=== PATIENT | female | born 1950 | race Caucasian/White ===

== ENCOUNTER 2019-03-06 23:04 | Emergency (ER) | payer SELFPAY ==
[~2019-03-06] VITALS: Ht 165.1 cm; Wt 95.3 kg
[2019-03-06] MEDS ORDERED: ONDANSETRON PF 4 MG/2 ML VIAL. IV ONE (23:45)
[2019-03-06] MEDS ORDERED: IV NORMAL SALINE 1,000ML 1,000 ML IV ONE (23:45)
--- NOTE | 2019-03-07 | EKG ---
[address] [address] Test Date: 2019-03-06 Test Time: 23:47:47 Pat Name: LINDESY HELMS Department: Room: Gender: F Behavioral Analyst: : 1950 Requested By: DAVION ANN Order Number: [id number] Reading MD: Measurements Intervals [place] Rate: 82 P: 39 ND: 188 QRS: 29 QRSD: 86 T: 31 QT: 400 QTc: 471 Interpretive Statements SINUS RHYTHM QRS(T) CONTOUR ABNORMALITY CONSISTENT WITH ANTEROSEPTAL INFARCT AGE UNDETERMINED ABNORMAL ECG RI6.01 No previous ECG available for comparison
--- NOTE | 2019-03-07 00:01 | RAD ---
CT HEAD WO CONTRAST History: Nausea, headache Comparison: None. Technique: Noncontrast CT imaging was performed of the head. Exposure: One or more of the following individualized dose reduction techniques were utilized for this examination: 1. Automated exposure control 2. Adjustment of the mA and/or kV according to patient size 3. Use of iterative reconstruction technique. Findings: No acute extra-axial or parenchymal hemorrhage is identified. There is no significant intra-axial mass effect, midline shift, or extra-axial fluid collection. The lee-white differentiation of the major vascular territories is preserved. Ventricular size is proportionate to the sulcal spaces, within normal limits. There is mild supratentorial involutional change greater of the frontal lobes. The mastoid air cells and the visualized paranasal sinuses are aerated. No acute calvarial abnormality is identified. Impression: 1. No acute intracranial abnormality is identified. 2. There is mild supratentorial involutional change greater of the frontal lobes. Electronically signed by: Migel Lopes MD (03/06/2019 11:58 PM) [facility]
[2019-03-07 00:12] LABS: BASO % 0 % (0-3); EOS # 0.2 x10^3/uL (0.0-0.7); EOS % 1 % (0-3); HEMATOCRIT 36.5 % (36.0-47.0); HEMOGLOBIN 11.8 g/dL (12.0-15.5); LYMPH # 2.6 x10^3/uL (1.0-4.8); LYMPH % 14 % (24-48); MEAN CORPUSCULAR HEMOGLOBIN 27 pg (25-35); MEAN CORPUSCULAR HGB CONC 32 g/dL (31-37); MEAN CORPUSCULAR VOLUME 84 fL (79-100); MONO # 1.1 x10^3/uL (0.0-1.1); MONO % 6 % (0-9); NEUT # 14.2 x10^3uL (1.8-7.7); NEUT % 78 % (31-73); PLATELET COUNT 249 x10^3/uL (140-400); RED BLOOD COUNT 4.37 x10^6/uL (3.50-5.40); RED CELL DISTRIBUTION WIDTH 12.7 % (11.5-14.5); WHITE BLOOD COUNT 18.2 x10^3/uL (4.0-11.0)
[2019-03-07 00:21] LABS: ALBUMIN 3.6 g/dL (3.4-5.0); ALBUMIN/GLOBULIN RATIO 0.9 (1.0-1.7); CALCIUM 9.5 mg/dL (8.5-10.1); CREATININE 1.7 mg/dL (0.6-1.0); GFR 29.7; TOTAL BILIRUBIN 0.8 mg/dL (0.2-1.0); TOTAL PROTEIN 7.4 g/dL (6.4-8.2)
[2019-03-07 00:32] LABS: % BANDS 9 % (0-9); % LYMPHS 15 % (24-48); % MONOS 3 % (0-10); % SEGS 73 % (35-66); PLT ESTIMATE ADEQUATE (ADEQUATE)
[2019-03-07 01:16] LABS: BILIRUBIN,URINE NEG (NEG); CLARITY,URINE CLEAR; COLOR,URINE YELLOW; GLUCOSE,URINE NEG (NEG); NITRITE,URINE NEG (NEG); UROBILINOGEN,URINE 0.2 mg/dL (0.2 mg/dL)
[2019-03-07 01:17] LABS: BACTERIA,URINE FEW /HPF (0-FEW); RBC,URINE 0 /HPF (0-2); SQUAMOUS EPITHELIAL CELL,UR FEW /LPF
[2019-03-07 01:30] VITALS: BP 113/56
[2019-03-07] MEDS ORDERED: ONDANSETRON PF 4 MG/2 ML VIAL. IV ONE (01:30)
[2019-03-07] MEDS ORDERED: CEPH500T PO (01:33)
[2019-03-07] MEDS ORDERED: ONDA4TAB12 PO (01:33)
[2019-03-07] MEDS ORDERED: cefTRIAXone SODIUM 1 GM VIAL ONE (01:36)
[2019-03-07] MEDS ORDERED: IV NORMAL SALINE 50ML 50 ML ONE (01:37)
[2019-03-07] MEDS ORDERED: ONDANSETRON 4MG ODT 4TABLET STARTPACK. PO ONE ×2 (01:58→02:00)
--- NOTE | 2019-03-07 05:50 | PHYS DOC ---
Past History Past Medical History: Diabetes, Hypertension, Other Past Surgical History: Appendectomy, Hysterectomy, Other Alcohol Use: None Drug Use: None Adult General Chief Complaint Chief Complaint: NAUSEA/VOMITING/DIARRHEA HPI HPI Patient is a 69-year-old female who is presenting to the emergency room with chief complaint of body aches neck pain nausea and frequent vomiting. She had a headache earlier in the day but that has gone away. No abdominal pain no chest pain in addition patient did have 3 vaccinations yesterday pneumonia shingles and flu. Patient was vomiting all day could not keep anything down so decided to call the emergency medical services for evaluation. EKG was done in the emergency room which showed a normal sinus rhythm with no obvious acute ischemic changes no STEMI Review of Systems Review of Systems Constitutional: Eyes: Denies change in visual acuity, redness, or eye pain [] Respiratory: Denies cough or shortness of breath [] Cardiovascular: No additional information not addressed in HPI [] Neurologic: Deniesfocal weakness or sensory changes [] Endocrine: Denies polyuria or polydipsia [] All other systems were reviewed and found to be within normal limits, except as documented in this note. Current Medications Current Medications Current Medications Medications (Trade) Dose Ordered Sig/Rolando Start Time Stop Time Status Last Admin Dose Admin Ceftriaxone Sodium 1 gm/ Sodium Chloride 50 ml @ 100 mls/hr 1X ONCE 03/07/19 01:45 03/07/19 02:06 DC 03/07/19 01:39 100 MLS/HR Ceftriaxone Sodium (Rocephin) 1 gm STK-MED ONCE 03/07/19 01:36 03/07/19 01:36 DC Fentanyl Citrate (Fentanyl 2ml Vial) 50 mcg 1X ONCE 03/06/19 23:45 03/06/19 23:46 DC 03/06/19 23:42 50 MCG Ondansetron HCl (Starter Pack - Zofran Odt) 1 startpack 1X ONCE 03/07/19 02:00 03/07/19 02:05 DC 03/07/19 02:02 1 STARTPACK Ondansetron HCl (Zofran) 4 mg 1X ONCE 03/07/19 01:30 03/07/19 01:31 DC 03/07/19 01:24 4 MG Sodium Chloride 50 ml @ As Directed STK-MED ONCE 03/07/19 01:37 03/07/19 01:37 DC Allergies Allergies Allergies Coded Allergies Type Severity Reaction Last Updated Verified No Known Drug Allergies 03/06/19 No Physical Exam Physical Exam Constitutional: Well developed, well nourished, no acute distress, non-toxic appearance. [] HENT: Normocephalic, atraumatic, bilateral external ears normal, oropharynx moist, no oral exudates, nose normal. [] Eyes: PERRLA, EOMI, conjunctiva normal, no discharge. [] Neck: Normal range of motion, there is some paraspinous mostly on the right tenderness, supple patient is able to touch chin to chest without significant limitation, no stridor. [] Cardiovascular:Heart rate regular rhythm, no murmur [] Lungs & Thorax: Bilateral breath sounds clear to auscultation [] Abdomen: Bowel sounds normal, soft, no tenderness, no masses, no pulsatile masses. [] Skin: erythema left bicep Back: No tenderness, no CVA tenderness. [] Extremities: No tenderness, no cyanosis, no clubbing, ROM intact, no edema. [] Neurologic: Alert and oriented X 3, normal motor function, normal sensory function, no focal deficits noted. [] Psychologic: Affect normal, judgement normal, mood normal. [] Current Patient Data Vital Signs Vital Signs Date Time Temp Pulse Resp B/P (MAP) Pulse Ox O2 Delivery O2 Flow Rate FiO2 03/07/19 01:30 80 18 113/56 (75) 95 Room Air 03/06/19 23:04 98.6 * None Temperature (Fahrenheit): * 98.6 degrees F (97.6-99.5) Patient Temperature * 98.6 degrees F (97.5-99.5) Temperature Source * Oral Blood Pressure Location * Right Arm Blood Pressure Source * Automatic Cuff Pulse Rate * 80 beats per minute (60-90) Pulse Assessment Method * Monitor Respiratory Rate * 18 breaths per minute (12-24) Oxygen Delivery Method * Room Air Bedside Pulse Oximetry * 96 % Treatment Prior to Arrival * No Complaint of Pain * No LOC * Alert Coma Scale Eye Opening * 4-Spontaneous Coma Scale Motor * 6-Obeys Commands Coma Scale Verbal * 5-Oriented [place] Coma Scale Total * 15 points (-15) Dialysis * No Lab Results Laboratory Tests Test 03/06/19 23:40 8/30/19 00:50 White Blood Count 18.2 x10^3/uL (4.0-11.0) H Red Blood Count 4.37 x10^6/uL (3.50-5.40) Hemoglobin 11.8 g/dL (12.0-15.5) L Hematocrit 36.5 % (36.0-47.0) Mean Corpuscular Volume 84 fL (79-100) Mean Corpuscular Hemoglobin 27 pg (25-35) Mean Corpuscular Hemoglobin Concent 32 g/dL (31-37) Red Cell Distribution Width 12.7 % (11.5-14.5) Platelet Count 249 x10^3/uL (140-400) Neutrophils (%) (Auto) 78 % (31-73) H Lymphocytes (%) (Auto) 14 % (24-48) L Monocytes (%) (Auto) 6 % (0-9) Eosinophils (%) (Auto) 1 % (0-3) Basophils (%) (Auto) 0 % (0-3) Neutrophils # (Auto) 14.2 x10^3uL (1.8-7.7) H Lymphocytes # (Auto) 2.6 x10^3/uL (1.0-4.8) Monocytes # (Auto) 1.1 x10^3/uL (0.0-1.1) Eosinophils # (Auto) 0.2 x10^3/uL (0.0-0.7) Basophils # (Auto) 0.0 x10^3/uL (0.0-0.2) Segmented Neutrophils % 73 % (35-66) H Band Neutrophils % 9 % (0-9) Lymphocytes % 15 % (24-48) L Monocytes % 3 % (0-10) Platelet Estimate Adequate (ADEQUATE) Sodium Level 139 mmol/L (136-145) Potassium Level 4.0 mmol/L (3.5-5.1) Chloride Level 102 mmol/L (98-107) Carbon Dioxide Level 25 mmol/L (21-32) Anion Gap 12 (6-14) Blood Urea Nitrogen 19 mg/dL (7-20) Creatinine 1.7 mg/dL (0.6-1.0) H Estimated GFR (Cockcroft-Gault) 29.7 BUN/Creatinine Ratio 11 (6-20) Glucose Level 205 mg/dL (70-99) H Calcium Level 9.5 mg/dL (8.5-10.1) Total Bilirubin 0.8 mg/dL (0.2-1.0) Aspartate Amino Transferase (AST) 13 U/L (15-37) L Alanine Aminotransferase (ALT) 13 U/L (14-59) L Alkaline Phosphatase 114 U/L (46-116) Troponin I Quantitative < 0.017 ng/mL (0-0.055) Total Protein 7.4 g/dL (6.4-8.2) Albumin 3.6 g/dL (3.4-5.0) Albumin/Globulin Ratio 0.9 (1.0-1.7) L Lipase 150 U/L (73-393) Urine Collection Type Unknown Urine Color Yellow Urine Clarity Clear Urine pH 5.5 Urine Specific [place] 1.010 Urine Protein Neg (NEG-TRACE) Urine Glucose (UA) Neg mg/dL (NEG) Urine Ketones (Stick) Neg mg/dL (NEG) Urine Blood Trace (NEG) Urine Nitrite Neg (NEG) Urine Bilirubin Neg (NEG) Urine Urobilinogen Dipstick 0.2 mg/dL (0.2 mg/dL) Urine Leukocyte Esterase Trace (NEG) Urine RBC 0 /HPF (0-2) Urine WBC 5-10 /HPF (0-4) Urine Squamous Epithelial Cells Few /LPF Urine Bacteria Few /HPF (0-FEW) EKG EKG [] Radiology/Procedures Radiology/Procedures [] Impressions: Head CT negative acute Course & Med Decision Making Course & Med Decision Making Pertinent Labs and Imaging studies reviewed. (See chart for details) []History of diabetes hypertension presenting with nausea vomiting generalized malaise and some neck pain after recent triple vaccine yesterday. Overall think the spectrum of symptoms is most consistent with a symptomatic reaction to the vaccinations. There is also a localized skin reaction noted as well. In the emergency room I did note the leukocytosis this could be from the significant vomiting that she was experiencing. Her abdomen is completely no ntender, lungs clear no cough or sob. Noted the urinalysis gave some ceftriaxone as well as a prescription for Keflex. This would also help if there is the beginnings of a cellulitis on the left upper extremity. Patient was neurologically intact neck she felt much much better in the emergency room after Zofran and IV fluids. Her neck remained supple she remained alert afebrile with normal blood pressure and overall clinically appeared stable. At this point, did give her return precautions we talked about the leukocytosis specifically and the need to come back should she spike a fever or have any other focal new infectious symptoms. Dragon Disclaimer Dragon Disclaimer This electronic medical record was generated, in whole or in part, using a voice recognition dictation system. Departure Departure: Impression: Primary Impression: Vomiting Disposition: HOME, SELF-CARE Condition: STABLE Patient Instructions: Pneumococcal Vaccine, Polyvalent suspension for injection, Nausea and Vomiting, Jiso-cs-Blyp Scripts Ondansetron (ONDANSETRON ODT) 4 Mg Tab.rapdis 1 TAB PO PRN Q6-8HRS PRN for NAUSEA/VOMITING, #10 TAB Prov: DAVION ANN MD 03/07/19 Cephalexin (CEPHALEXIN) 500 Mg Tablet 1 TAB PO QID for UTI, #28 TAB Prov: DAVION ANN MD 03/07/19 DAVION ANN MD Mar 07, 2019 05:50
== END 2019-03-07 02:03 | disposition home or self-care (01) ==
LOC: ER 23:04
DX: R11.2 Nausea with vomiting, unspecified (principal); M54.2 Cervicalgia; R51 Headache; E11.9 Type 2 diabetes mellitus without complications; I10 Essential (primary) hypertension
CPT/HCPCS: 36415; 70450; 80053; 81001; 83690; 84484; 85007; 85025; 87086; 87186; 93005; 96361; 96365; 96374; 96375; 96376; 99285; J0696; J2405; J3010; Q0162; J7030

== ENCOUNTER 2020-06-16 19:36 | Emergency (ER) | payer MEDICARE ==
[~2020-06-16] VITALS: Ht 165.1 cm; Wt 95.0 kg
[~2020-06-16 19:36] MED LIST: CEPH500T PO; ONDA4TAB12 PO
[2020-06-16 20:00] VITALS: BP 184/103
[2020-06-16] MEDS ORDERED: METH4TAB2 PO ×2 (20:00→20:01)
--- NOTE | 2020-06-16 20:01 | PHYS DOC ---
Past History Past Medical History: Diabetes, Hypertension, Other (KAYE CAI APRN) Past Surgical History: Appendectomy, Hysterectomy, Other (KAYE CAI APRN) Alcohol Use: None Drug Use: None (KAYE CAI APRN) Adult General HPI HPI Patient is a female with a history of diabetes type 2, hypertension, who presents to the ED today with a pruritic rash that she has had on and off since January 2020. Patient states she has been seen at [facility], the rash subsided then it came back, she states she went and saw the PCP who put her on several medicines including hydroxyzine, famotidine, clobetasol, she states the rash is not going away at this time. Denies any fever. (KAYE CAI APRN) Review of Systems Review of Systems Constitutional: Denies fever or chills [] [] Musculoskeletal: Denies back pain or joint pain [] Integument: Reports a pruritic rash Neurologic: Denies headache, focal weakness or sensory changes [] All other systems were reviewed and found to be within normal limits, except as documented in this note. (KAYE CAI APRN) Allergies Allergies Allergies Coded Allergies Type Severity Reaction Last Updated Verified No Known Drug Allergies 03/06/19 No (KAYE CAI APRN) Physical Exam Physical Exam Constitutional: Well developed, well nourished, no acute distress, non-toxic appearance. [] Skin: Warm, dry, bilateral upper extremities with small amount of erythematous papular rash suspicious of insect bites. Similar rash noted on lower extremities. Back: No tenderness, no CVA tenderness. [] Extremities: No tenderness, no cyanosis, no clubbing, ROM intact, no edema. [] Neurologic: Alert and oriented X 3, normal motor function, normal sensory function, no focal deficits noted. [] Psychologic: Affect normal, judgement normal, mood normal. [] (KAYE CAI APRN) EKG EKG [] (KAYE CAI APRN) Radiology/Procedures Radiology/Procedures [] (KAYE CAI APRN) Heart Score Risk Factors: Risk Factors: DM, Current or recent (<one month) smoker, HTN, HLP, family history of CAD, obesity. Risk Scores: Risk Factors: DM, Current or recent (<one month) smoker, HTN, HLP, family history of CAD, obesity. (KAYE CAI APRN) Course & Med Decision Making Course & Med Decision Making Pertinent Labs and Imaging studies reviewed. (See chart for details) This is a 70-year-old female patient presented to the ED today with a pruritic rash in bilateral upper and lower extremities that has been going on and off since January. Patient has been seen outpatient hospitals as well as by her PCP, she is currently on hydroxyzine, Pepcid and clobetasol. At this point I recommended following up with a steam pan sponger. Provided steam pan sponger name. Also recommended she continue taking the medication she got from her PCP. Give a prescription for tapered dose of prednisone as well. Emphasized the importance of cleaning things at home just in case this is an environmental issue like bedbugs (KAYE CAI APRN) Dragon Disclaimer Dragon Disclaimer This electronic medical record was generated, in whole or in part, using a voice recognition dictation system. (KAYE CAI APRN) Departure Departure: Impression: Primary Impression: Rash Disposition: DC HOME SELF CARE/HOMELESS Condition: STABLE Referrals: JUANA SHUKLA MD (PCP) follow up in 2 weeks BOB RESENDIZ MD Patient Instructions: Rash Additional Instructions: You were evaluated in the emergency room for a rash. We highly recommend you follow-up with the provided steam pan sponger. Please call her office tomorrow and they will set you up for an appointment Scripts Methylprednisolone (MEDROL) 4 Mg Tab.ds.pk 1 PKG PO UD, #1 PKG Prov: KAYE CAI APRN 06/16/20 Methylprednisolone (MEDROL) 4 Mg Tab.ds.pk 1 PKG PO UD, #1 PKG Prov: KAYE CAI APRN 06/16/20 Attending Signature Attending Signature I have participated in the care of this patient and I have reviewed and agree with all pertinent clinical information above including history, exam, and recommendations. (AVERY CAMEJO MD) Dragon Disclaimer This chart was dictated in whole or in part using Voice Recognition software in a busy, high-work load, and often noisy Emergency Department environment. It may contain unintended and wholly unrecognized errors or omissions. (AVERY CAMEJO MD) KAYE CAI APRN Jun 16, 2020 20:01 AVERY CAMEJO MD Jun 18, 2020 19:31
== END 2020-06-16 20:05 | disposition home or self-care (01) ==
LOC: ER 19:36
DX: R21 Rash and other nonspecific skin eruption (principal); L29.8 Other pruritus; E11.9 Type 2 diabetes mellitus without complications; I10 Essential (primary) hypertension
CPT/HCPCS: 99283

== ENCOUNTER → 2020-08-11 | Outpatient (CLI) | payer MEDICARE ==
[~2020-08-11] MED LIST changes: +METH4TAB2 PO
--- NOTE | 2020-08-19 10:59 | RAD ---
DATE: 08/11/2020 10:20 AM EXAM: MAMMO ANNA SCREENING BILATERAL HISTORY: Screening COMPARISON: 09/11/2016 Bilateral CC and MLO views of the breasts were performed. Bilateral breast tomosynthesis was performed in CC and MLO projections. This study was interpreted with the benefit of Computerized Aided Detection (CAD). FINDINGS: Breast Density: SCATTERED The breast parenchyma shows scattered fibroglandular densities. Breast parenchyma level B Stable nodular parenchymal pattern compatible with benign cystic change. No suspicious masses, microcalcifications or architectural distortion is present to suggest malignancy in either breast. The visualized axillae are unremarkable. IMPRESSION: No mammographic evidence of malignancy. BI-RADS CATEGORY: 2 BENIGN FINDING(S) RECOMMENDED FOLLOW-UP: 12M 12 MONTH FOLLOW-UP Annual screening mammography is recommended, unless clinically indicated sooner based on symptoms or change in physical exam. PQRS compliance statement: Patient information was entered into a reminder system with a target due date for the next mammogram. Mammography is a sensitive method for finding small breast cancers, but it does not detect them all and is not a substitute for careful clinical examination. A negative mammogram does not negate a clinically suspicious finding and should not result in delay in biopsying a clinically suspicious abnormality. "Our facility is accredited by the [employer] Mammography [employer]."
== END ==
LOC: MAMMO 09:36
PROVIDERS: ATTEND Family Medicine
DX: Z12.31 Encounter for screening mammogram for malignant neoplasm of breast (principal)
CPT/HCPCS: 77063; 77067

== ENCOUNTER → 2021-09-05 | Outpatient (CLI) | payer MEDICARE ==
--- NOTE | 2021-09-05 16:06 | RAD ---
INDICATION: 71 years of age asymptomatic female patient presents for screening mammography. History o f benign left breast biopsy. No personal or family history of breast cancer. TECHNIQUE: Full field craniocaudal and mediolateral oblique images of both breasts were obtained usi ng digital technique with tomosynthesis and also analyzed with computer-aided detection software. COMPARISON: Prior mammographic imaging dating back to 08/11/2020. BREAST COMPOSITION: Category C: The breast tissue is heterogeneously dense, which could obscure detec tion of small masses. FINDINGS: No suspicious masses, microcalcifications or architectural distortion is present to suggest malignanc y in either breast. The visualized axillae are unremarkable. IMPRESSION: No mammographic evidence of malignancy. RECOMMENDATION: Annual screening mammography is recommended, unless clinically indicated sooner based on symptoms or change in physical exam. BIRADS 1: NEGATIVE This study was interpreted with the benefit of Computerized Aided Detection (CAD). ?Your patient's mammogram demonstrates that she has dense breast tissue (breast density category C or D), which could hide abnormalities, and if she has other risk factors for breast cancer that have be en identified, she might benefit from supplemental screening tests that may be suggested by you as he r ordering physician. Dense breast tissue, in and of itself, is a relatively common condition. Theref ore, this information is not provided to cause undue concern, but rather to raise your awareness and to promote discussion with your patient regarding the presence of other risk factors, in addition to dense breast tissue. Your patient's mammography results will be sent to her. Patient information is entered into the reminder system with a target due date for the next screening mammogram. Mammography is the most sensitive method for finding small breast cancers, but it does not detect the m all and is not a substitute for careful clinical examination. A negative mammogram does not negate a clinically suspicious finding and should not result in delay in biopsying a clinically suspicious a bnormality. "Our facility is accredited by the [employer] Mammography Program." Electronically signed by: Martin Sampson DO (09/05/2021 4:04 PM) [id number]
== END ==
LOC: MAMMO 14:41
PROVIDERS: ATTEND Family Medicine
DX: Z12.31 Encounter for screening mammogram for malignant neoplasm of breast (principal)
CPT/HCPCS: 77063; 77067